=== PATIENT | male | born 1995 | race Caucasian/White ===

== ENCOUNTER 2023-10-16 03:04 | Emergency (ER) | payer SELFPAY ==
[2023-10-16 03:07] VITALS: BP 140/88; PULSE 87; TEMP 36.6; O2SAT 99; BMI 34.0
--- NOTE | 2023-10-16 03:12 | ED.ABDPAIN1 ---
HPI - Abdominal Pain General Chief Complaint: Abdominal Pain Stated Complaint: ABD PAIN Time Seen by Provider: 10/16/23 03:07 History of Present Illness HPI narrative: presents complaining of suprapubic pain. Started around 11 hours ago. No associated nausea,vomiting or diarrhea. No urinary symptoms. Left work this AM and came here because of continued pain. Past appendectomy Related Data Allergies Allergy/AdvReac Type Severity Reaction Status Date / Time Penicillins Allergy Hives Verified 10/16/23 03:14 Review of Systems ROS Status of ROS 10 or more systems reviewed and unremarkable except as noted in history and below Exam Constitutional Vital Signs, click to edit/add: Last Vital Signs Temp 97.8 F 10/16/23 03:07 Pulse 87 10/16/23 03:07 Resp 18 10/16/23 03:07 BP 140/88 10/16/23 03:07 Pulse Ox 99 10/16/23 03:07 O2 Del Method Room Air 10/16/23 03:07 Common normals: no apparent distress, average body habitus, oriented x3, no limitations, healthy appearing, alert and well nourished [facility] Common normals: normocephalic and head/scalp atraumatic Eye Common normals: EOMs intact bilaterally and conjunctivae normal Respiratory Common normals: normal respiratory effort, no retractions, no use of accessory muscles and clear to auscultation bilaterally Cardio Common normals: regular rate, regular rhythm, S1 normal heart sound and S2 normal heart sound GI Common normals: Normal to inspection, nondistended, normoactive bowel sounds present and soft to palpation Other: mild suprapubic tenderness Extremity Common normals: normal to inspection and full ROM Neuro Common normals: oriented x3, CN's II-XII intact bilaterally, moves all extremities and no focal motor deficits Psych Appearance: grossly normal Course Vital Signs Vital signs: Vital Signs Temperature 97.8 F 10/16/23 03:07 Pulse Rate 87 10/16/23 03:07 Respiratory Rate 18 10/16/23 03:07 Blood Pressure 140/88 10/16/23 03:07 Pulse Oximetry 99 10/16/23 03:07 Oxygen Delivery Method Room Air 10/16/23 03:07 Temperature 97.8 F 10/16/23 03:07 Pulse Rate 87 10/16/23 03:07 Respiratory Rate 18 10/16/23 03:07 Blood Pressure 140/88 10/16/23 03:07 Pulse Oximetry 99 10/16/23 03:07 Oxygen Delivery Method Room Air 10/16/23 03:07 MDM - Abdominal Pain MDM Narrative Medical decision making narrative: presents with suprapubic abdominal crampy type pain. left work this AM because of the continued discomfort. no fever, vomiting or diarrhea. Mild suprapubic tenderness. labs unremarkable except urine with findings of dehydration. CT neg for acute findings. Patient informed of the above. Discharged home with Kartik to use prn and is to follow up with his doctor Lab Data Labs: Lab Results 10/16/23 10/16/23 Range/Units 03:20 03:25 WBC 9.0 (4.0-11.0) 10^3/uL RBC 5.03 (4.70-6.10) 10^6/uL Hgb 15.2 (14.0-18.0) g/dL Hct 45.0 (42.0-54.0) % MCV 89.5 (80.0-94.0) fL MCH 30.2 (25.9-34.0) pg MCHC 33.8 (29.9-35.2) g/dL RDW 12.2 (11.0-15.0) % Plt Count 215 (150-450) 10^3/uL MPV 10.5 (9.5-13.5) fL Neut % (Auto) 46.1 (43.0-75.0) % Lymph % (Auto) 43.3 (20.5-60.0) % [place] % (Auto) 6.3 (1.7-12.0) % Eos % (Auto) 2.7 (0.9-7.0) % Baso % (Auto) 0.7 (0.2-2.0) % Neut # (Auto) 4.2 (1.4-6.5) 10^3/uL Lymph # (Auto) 3.9 H (1.2-3.8) 10^3/uL [place] # (Auto) 0.6 (0.3-0.8) 10^3/uL Eos # (Auto) 0.2 (0.0-0.7) 10^3/uL Baso # (Auto) 0.1 (0.0-0.1) 10^3/uL Abs Immat Gran (auto) 0.08 H (0.00-0.03) 10^3/uL Imm/Tot Granulo (auto) 0.9 H (0.0-0.5) % Sodium 139 (136-145) mmol/L Potassium 3.6 (3.5-5.1) mmol/L Chloride 104 (98-107) mmol/L Carbon Dioxide 26.8 (21.0-32.0) mmol/L Anion Gap 11.8 BUN 11.0 (7.0-18.0) mg/dL Creatinine 0.93 (0.70-1.30) mg/dL Est GFR ( Amer) >60 (>=60) Est GFR (Non-Af Amer) >60 (>=60) BUN/Creatinine Ratio 11.8 Glucose 102 (74-106) mg/dL Lactate 0.9 (0.4-2.0) mmol/L Calcium 9.1 (8.5-10.1) mg/dL Total Bilirubin 0.6 (0.2-1.0) mg/dL AST 29 (15-37) U/L ALT 78 H (16-63) U/L Alkaline Phosphatase 70 (46-116) U/L Total Protein 7.0 (6.4-8.2) g/dL Albumin 3.9 (3.4-5.0) g/dL Globulin 3.1 g/dL Albumin/Globulin Ratio 1.3 Lipase 44.0 (16.0-77.0) U/L Urine Color Yellow (YELLOW) Urine Clarity Clear (CLEAR) Urine pH 5.5 (5.0-9.0) Ur Specific [place] >=1.030 A (1.005-1.025) Urine Protein Negative (NEG/TRACE) mg/dL Urine Glucose (UA) Negative (NEGATIVE) mg/dL Urine Ketones Negative (NEGATIVE) mg/dL Urine Occult Blood Negative (NEGATIVE) Urine Nitrite Negative (NEGATIVE) Urine Bilirubin Negative (NEGATIVE) Urine Urobilinogen 0.2 (0.2-1.0) EU/dL Ur Leukocyte Esterase Negative (NEGATIVE) Imaging Data CT scan - abdomen: Radiologist's impression: ITS Impressions Abdomen/Pelvis CT 10/16/23 03:15 IMPRESSION: No acute findings in the abdomen or pelvis to explain the patient's lower abdominal pain. Electronically authenticated by: ELSA NÚÑEZ Date: 10/16/2023 03:58 Discharge Plan Discharge Stand Alone Forms: Portal Instructions Chief Complaint: Abdominal Pain Clinical Impression: Abdominal pain Patient Disposition: Home, Self-Care Print Language: Ukrainian Instructions: Abdominal Pain (ED) Additional Instructions: follow up with your doctor in 2-3 days for recheck Referrals: MAGALI CARRANZA [Primary Care Provider] - 1 week
--- NOTE | 2023-10-16 03:15 | CT_ITS ---
The [address] [address] Patient Name: FRIDA PIERRE MRN: [id number] date: 1995 Sex: M Assigned Patient Location: ER Current Patient Location: ER Accession/Order Number: [id number] Exam Date: 10/16/2023 03:38 Report Date: 10/16/2023 03:58 At the request of: GINO SAEED Procedure: CT abdomen pelvis w con EXAM: CT abdomen pelvis w con HISTORY: Lower abdominal pain for one day. COMPARISON: None. TECHNIQUE: IV contrast enhanced CT imaging the abdomen and pelvis was performed using Omnipaque 300 intravenous contrast. Sagittal and coronal reconstructions are provided. Dose reduction techniques were achieved by using automated exposure control and/or adjustment of mA and/or kV according to patient size and/or use of iterative reconstruction technique. FINDINGS: CT ABDOMEN: The lung bases are clear. The imaged heart is unremarkable. There is mild hepatic steatosis. The gallbladder, pancreas, spleen, adrenal glands, kidneys, aorta, IVC, stomach and small bowel are unremarkable. CT PELVIS: The pelvic small bowel loops, colon, prostate and urinary bladder are unremarkable. The appendix is not seen. There are no secondary findings of appendicitis. No inflammatory fat stranding, free fluid, loculated fluid or free air is seen in the abdomen or pelvis. No acute osseous abnormality or suspicious bony lesion is seen. CT/CT abdomen pelvis w con IMPRESSION: No acute findings in the abdomen or pelvis to explain the patient's lower abdominal pain. Electronically authenticated by: ELSA NÚÑEZ Date: 10/16/2023 03:58
[2023-10-16 03:42] LABS: Bilirubin Urine NEGATIVE (NEGATIVE); Blood Urine NEGATIVE (NEGATIVE); Clarity Urine CLEAR (CLEAR); Color Urine YELLOW (YELLOW); Glucose Urine UA NEGATIVE (NEGATIVE); Ketones Urine NEGATIVE (NEGATIVE); Leukocyte Esterase Urine NEGATIVE (NEGATIVE); Nitrite Urine NEGATIVE (NEGATIVE); Protein Urine NEGATIVE (NEG/TRACE); Specific Gravity Urine >=1.030 (1.005-1.025); Urobilinogen Urine 0.2 EU/dL (0.2-1.0); pH Urine 5.5 (5.0-9.0)
[2023-10-16 03:44] LABS: Basophils Absolute Auto 0.1 10^3/uL (0.0-0.1); Basophils Percent Auto 0.7 % (0.2-2.0); Eosinophils Absolute Auto 0.2 10^3/uL (0.0-0.7); Eosinophils Percent Auto 2.7 % (0.9-7.0); Hemoglobin 15.2 g/dL (14.0-18.0); Immature Granulocytes Abs Auto 0.08 10^3/uL (0.00-0.03); Immature Granulocytes Pct Auto 0.9 % (0.0-0.5); Lymphocytes Absolute Auto 3.9 10^3/uL (1.2-3.8); Lymphocytes Percent Auto 43.3 % (20.5-60.0); Mean Corpuscular HGB Conc 33.8 g/dL (29.9-35.2); Mean Corpuscular Hemoglobin 30.2 pg (25.9-34.0); Mean Corpuscular Volume 89.5 fL (80.0-94.0); Mean Platelet Volume 10.5 fL (9.5-13.5); Monocytes Absolute Auto 0.6 10^3/uL (0.3-0.8); Monocytes Percent Auto 6.3 % (1.7-12.0); Neutrophils Absolute Auto 4.2 10^3/uL (1.4-6.5); Neutrophils Percent Auto 46.1 % (43.0-75.0); Platelet Count 215 10^3/uL (150-450); Red Blood Count 5.03 10^6/uL (4.70-6.10); Red Cell Distribution Width 12.2 % (11.0-15.0)
[2023-10-16 03:47] LABS: Urine Microscopic Indicated NO
[2023-10-16] MEDS: 0.9 % SODIUM CHLORIDE 1,000 ML 999 ML IV (03:52)
[2023-10-16 03:53] LABS: Alanine Aminotransferase 78 U/L (16-63); Albumin Globulin Ratio 1.3; Albumin Level 3.9 g/dL (3.4-5.0); Alkaline Phosphatase 70 U/L (46-116); Anion Gap 11.8; Aspartate Amino Transferase 29 U/L (15-37); BUN Creatinine Ratio 11.8; Bilirubin Total 0.6 mg/dL (0.2-1.0); Calcium 9.1 mg/dL (8.5-10.1); Carbon Dioxide 26.8 mmol/L (21.0-32.0); Chloride 104 mmol/L (98-107); Estimated GFR (African America >60 (>=60); Estimated GFR (Non-African Ame >60 (>=60); Globulin 3.1 g/dL; Glucose 102 mg/dL (74-106); Potassium 3.6 mmol/L (3.5-5.1); Sodium 139 mmol/L (136-145)
[2023-10-16 03:58] LABS: Lactate/Lactic Acid 0.9 mmol/L (0.4-2.0)
== END 2023-10-16 04:49 | disposition home or self-care (01) ==
PROVIDERS: Emergency Provider Internal Medicine; PCP Internal Medicine
DX: R10.9 Unspecified abdominal pain (principal)
CPT/HCPCS: 36415; 74177; 80053; 81003; 83605; 83690; 85025; 99285; Q9967

== ENCOUNTER 2024-10-24 17:06 | Emergency (ER) | payer OTHER, SELFPAY ==
[2024-10-24 17:10] VITALS: BP 129/79; PULSE 99; TEMP 36.7; O2SAT 96; BMI 31.6
--- NOTE | 2024-10-24 17:19 | ED.TRAUMA1 ---
Review of Systems ROS Constitutional Denies: fever or chills Cardiovascular Denies: chest pain Respiratory Denies: shortness of breath Integumentary/Breast Reports: new lesion Neurological Denies: headache, numbness in extremities or weakness in extremities HPI HPI - Trauma General Chief Complaint: Trauma Stated Complaint: FINGER LACERATION Time Seen by Provider: 10/24/24 17:16 Source: patient Mode of arrival: walk-in Limitations: no limitations History of Present Illness HPI narrative: 28 year old male presents to the ED for a laceration to his left middle finger. 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 Tetanus status is unknown. Denies fever, weakness, N/T. He has full ROM to the digit. Distal sensation intact. Related Data Home Medications ?Medication ?Instructions ?Recorded ?Confirmed No Known Home Medications 10/24/24 10/24/24 Allergies Allergy/AdvReac Type Severity Reaction Status Date / Time Penicillins Allergy Hives Verified 10/16/23 03:14 Opioid HPI Opioid Management Most Recent Pain and Opioid Data: Last Pain Scale 4 10/16/23, 04:47 PFSH PFSH Social History Little interest or pleasure in doing things: not at all Feeling down, depressed, or hopeless: not at all Exam Constitutional Vital Signs, click to edit/add: Last Vital Signs Temp 98.0 F 10/24/24 17:10 Pulse 99 H 10/24/24 17:10 Resp 18 10/24/24 17:10 BP 129/79 10/24/24 17:10 Pulse Ox 96 10/24/24 17:10 O2 Del Method Room Air 10/24/24 17:10 Common normals: no apparent distress and oriented x3 General appearance: cooperative Eye Common normals: conjunctivae normal and no scleral icterus Neck & C-Spine Common normals: supple Respiratory Common normals: normal respiratory effort Effort & inspection: able to speak in complete sentences and symmetric chest movement Cardio Common normals: regular rate Peripheral pulses: radial pulses present Extremity Other: Partial-thickness skin avulsion noted to left middle finger. Area is approx 2 mm x 8 mm. Minimal bleeding. Full ROM to all joints of the digit. Distal sensation intact. No obvious deformity. No swelling. Neuro Common normals: oriented x3, moves all extremities and no focal motor deficits Sensorium/orientation: awake and alert Speech: speech normal Gait (neuro): normal gait Course Vital Signs Vital signs: Vital Signs Temperature 98.0 F 10/24/24 17:10 Pulse Rate 99 H 10/24/24 17:10 Respiratory Rate 18 10/24/24 17:10 Blood Pressure 129/79 10/24/24 17:10 Pulse Oximetry 96 10/24/24 17:10 Oxygen Delivery Method Room Air 10/24/24 17:10 Temperature 98.0 F 10/24/24 17:10 Pulse Rate 99 H 10/24/24 17:10 Respiratory Rate 18 10/24/24 17:10 Blood Pressure 129/79 10/24/24 17:10 Pulse Oximetry 96 10/24/24 17:10 Oxygen Delivery Method Room Air 10/24/24 17:10 MDM - Trauma MDM Narrative Medical decision making narrative: His wound was cleansed. A Gelfoam dressing was applied. Follow up with pcp for a recheck, further evaluation and treatment. Leave the Gelfoam dressing in place for 48 hours. Keep the wound clean and dry. Discharge Plan Discharge Chief Complaint: Trauma Clinical Impression: Avulsion of skin of finger Patient Disposition: Home, Self-Care Condition: Good Mode of Transportation: Private Vehicle Prescriptions / Home Meds: No Action No Known Home Medications Print Language: Singaporean Instructions: Skin Avulsion (ED) Additional Instructions: Leave the Gelfoam dressing in place for 48 hours. Keep the wound clean and dry. Monitor for signs of infection: redness, purulent drainage, increased warmth, swelling. Referrals: MAGALI CARRANZA [Primary Care Provider, Internal Medicine] - 1 week
[2024-10-24] MEDS: ADACEL DIPH,PERTUSS(ACELL),TET VAC/PF 0.5 ML ADULT SYRINGE IM (17:32)
[2024-10-24] MEDS: SURGIFOAM GEL SPONGE SIZE 100 1 EACH TOPICAL (17:37)
--- NOTE | 2024-10-24 17:49 | PC.NURSE ---
pts wound to L middle finger soaked in Hibiclens soak. wound gently irrigated and cleaned away debri. pt tolerated as expected. wound/avulsion dried completely and Surgifoam placed within avulsion, covered with Telfa, and wrapped in gauze secured with paper tape. pt sent home with gloves to ensure dressing stays dry and in place for next 48 hours.
== END 2024-10-24 17:51 | disposition home or self-care (01) ==
PROVIDERS: Emergency Provider Emergency Medicine; PCP Internal Medicine
DX: S61.203A Unspecified open wound of left middle finger without damage to nail, initial encounter (principal); W29.8XXA Contact with other powered hand tools and household machinery, initial encounter; Z23 Encounter for immunization
CPT/HCPCS: 90471; 90715; 99283